=== PATIENT | male | born 1940 ===

== ENCOUNTER 2017-12-10 09:58 | Outpatient (CLI) | payer OTHER ==
[~2017-12-10] VITALS: Ht 170.2 cm; Wt 111.1 kg
[2017-12-10] MEDS ORDERED: ZANTAC300 MG PO (12:11)
[2017-12-10] MEDS ORDERED: CLARITIN10 MG PO (12:11)
== END 2017-12-10 10:15 | disposition home or self-care (01) ==
LOC: OFIC 805 09:58
DX: H61.23 Impacted cerumen, bilateral (principal); R49.8 Other voice and resonance disorders; J31.0 Chronic rhinitis; J31.2 Chronic pharyngitis; G47.33 Obstructive sleep apnea (adult) (pediatric)